=== PATIENT | male | born 1940 | race Caucasian/White ===

== ENCOUNTER 2020-09-24 10:49 | Inpatient (IN) | payer OTHER, MEDICARE ==
[~2020-09-24] VITALS: Ht 198.1 cm; Wt 87.5 kg
[~2020-09-24 10:49] MED LIST: ACET325 PO; ALLO300 PO; AMLO5 PO; ATOR20 PO; Amaryl2 MG PO; Aspirin EC81 MG PO; BASAGLAR K100 UNIT/1 SC; CEPH500 PO; COREG6.25 MG PO; Chlorthalidone25 MG; FLOMAX0.4 MG PO; Flomax0.4 MG PO; GLUCOPHAGE1000 MG PO; GLYMET5 PO; Glyburide5 MG PO; HUMALOG KW100 UNIT/1 SC; HYDCHL25 PO; HYDR10 PO; INSDET100 SC; LISI20 PO; Lantus100 UNIT/1 SC; Lisinopril2.5 MG PO; MAGNESIUM OXID500 MG PO; METO100ER PO; NAPR220 PO; NOVOLOG FL100 UNIT/3 SC; ONDA4ODT PO; POTA10T PO; POTCHL20ER PO; SIMV10 PO; SIMV40 PO; TRAM50 PO; VISBIOME 112.51 EACH PO; Vitamin D2000 UNIT PO; XARELTO20 MG PO
[2020-09-24 11:29] LABS: BASOPHILS ABSOLUTE AUTO 0.06 K/mm3 (0.00-0.23); BASOPHILS PERCENT AUTO 0 % (0-2); Hematocrit 28.1 % (37.0-53.0); Hemoglobin 9.2 g/dL (13.5-17.5); LYMPHOCYTES ABSOLUTE AUTO 1.22 K/mm3 (0.84-5.20); LYMPHOCYTES PERCENT AUTO 9 % (21-46); MONOCYTES ABSOLUTE AUTO 0.93 K/mm3 (0.16-1.47); MONOCYTES PERCENT AUTO 6 % (4-13); Mean Corpuscular HGB 27.8 pg (26.0-34.0); Mean Corpuscular HGB Conc 32.7 g/dL (31.5-36.5); Mean Corpuscular Volume 85 fL (80-100); Mean Platelet Volume 9.9 fL (9.1-12.4); Platelet Count 596 K/mm3 (150-400); RDW Coefficient Variation 15.1 % (11.7-14.2); RDW Standard Deviation 46.8 fL (35.1-46.3); Red Blood Cell Count 3.31 M/mm3 (4.30-5.90); White Blood Cell Count 14.43 K/mm3 (4.00-11.30)
[2020-09-24 11:34] LABS: EOSINOPHILS PERCENT AUTO 0 % (0-6); IMMATURE GRAN ABSOLUTE AUTO 0.19 K/mm3 (0.00-0.10); IMMATURE GRAN PERCENT AUTO 1 % (0-1); NEUTROPHILS ABSOLUTE AUTO 12.03 K/mm3 (1.96-9.15); NEUTROPHILS PERCENT AUTO 83 % (41-73)
[2020-09-24 11:43] LABS: Alanine Aminotransfer (ALT/SGP 30 U/L (12-78); Albumin, Blood 1.4 g/dL (3.4-5.0); Albumin/Globulin Ratio 0.3 (0.8-1.8); Alk Phos 91 U/L (50-136); Anion Gap 7 mmol/L (6-16); Aspartate Aminotrans (AST/SGOT 41 U/L (12-37); Bilirubin, Total 0.4 mg/dL (0.1-1.0); Blood Urea Nitrogen 47 mg/dL (8-24); Bun/Creatinine Ratio 55.4 (12.0-20.0); CO2, Blood 25 mmol/L (21-32); Calcium, Blood 7.8 mg/dL (8.5-10.1); Chloride, Blood 100 mmol/L (98-108); Creatinine, Blood 0.85 mg/dL (0.60-1.20); Globulin, Blood 4.6 g/dL (2.2-4.0); Glomerular Filtration Rate >60 (60-); Glucose, Blood 256 mg/dL (70-99); Potassium, Blood 4.9 mmol/L (3.5-5.5); Sodium, Blood 132 mmol/L (136-145)
[2020-09-24 15:43] LABS: Percent Saturation 8.2 % (20.0-50.0)
--- NOTE | 2020-09-24 18:12 | NUR ---
REPORT RECIEVED FROM JACQUE DUFF RN, @ 2054. PATIENT ARRIVED TO ROOM 349 @ 1606 AND WAS TRANSFERED TO HOSPITAL BED WITH THE ASSISTANCE OF THREE HOSPITAL STAFF. PATIENT VERY SLEEPY AND LETHARGIC. ADMISSION H&P AND ASSESSMENT COMPLETED WITH THE ASSISTANCE OF MEDICAL RECORDS; PATIENT IS MUCH TOO TIRED AND POOR HISTORIAN. ULCERS T/O; PICTURES TAKEN AND PLACED IN CHART; MEASURED. PATIENT IS PLEASANT AND COOPERATIVE WITH STAFF, JUST EXTREMELY PAINFUL. PATIENT ASLEEP IN BED AT THIS TIME. CALL LIGHT IN REACH.
[2020-09-24 22:42] LABS: Source, Urine Catheter
[2020-09-24 22:45] LABS: Appearance, Urine Clear (Clear); Bilirubin, Urine Neg (Neg); Blood, Urine Neg (Neg); Color, Urine Amber (P-Yellow); Glucose Qualitative, Urine Neg (Neg); Ketones, Urine Neg (Neg); Leukocyte Esterase, Urine 1+ (Neg); Nitrite, Urine Neg (Neg); Protein, Urine 2+ (Neg); Urobilinogen, Urine NORM (Normal)
[2020-09-24 22:52] LABS: Bacteria Mod /hpf; Granular Casts 0-2 /lpf (0); Red Blood Cells, Urine 0-2 /hpf (0-2); Squamous Epithelial Cells Few /hpf (Few); WBC Cast 0-2 /lpf (0)
--- NOTE | 2020-09-25 03:16 | NUR ---
0300 PT FOUND W/ SBP IN 80'S. DR FERRER CALLED AND A 500ML BOLUS ORDERED. WCTM.
--- NOTE | 2020-09-25 04:26 | NUR ---
SUMMARY PT HAS BEEN SLEEPING FOR MOST OF SHIFT. PT WAS GIVEN BLOUS OF FLUID TO KEEP SBP >90. PT IS A ASPIRATION RISK W/ VERY WEAK COUGH. PENA CATH PLACED TO PROTECT WOUND AND SKIN. PENA DRAINING WELL TO GRAVITY. PT CURRENTLY SLEEPING IN NO DISTRESS.
[2020-09-25 05:00] LABS: BASOPHILS ABSOLUTE AUTO 0.15 K/mm3 (0.00-0.23); BASOPHILS PERCENT AUTO 1 % (0-2); Hematocrit 27.8 % (37.0-53.0); Hemoglobin 9.1 g/dL (13.5-17.5); LYMPHOCYTES ABSOLUTE AUTO 1.24 K/mm3 (0.84-5.20); LYMPHOCYTES PERCENT AUTO 7 % (21-46); MONOCYTES ABSOLUTE AUTO 0.73 K/mm3 (0.16-1.47); MONOCYTES PERCENT AUTO 4 % (4-13); Mean Corpuscular HGB 27.3 pg (26.0-34.0); Mean Corpuscular HGB Conc 32.7 g/dL (31.5-36.5); Mean Corpuscular Volume 84 fL (80-100); Mean Platelet Volume 9.9 fL (9.1-12.4); Platelet Count 585 K/mm3 (150-400); RDW Coefficient Variation 15.3 % (11.7-14.2); RDW Standard Deviation 46.8 fL (35.1-46.3); Red Blood Cell Count 3.33 M/mm3 (4.30-5.90); White Blood Cell Count 17.97 K/mm3 (4.00-11.30)
[2020-09-25 05:02] LABS: EOSINOPHILS PERCENT AUTO 0 % (0-6); IMMATURE GRAN ABSOLUTE AUTO 0.34 K/mm3 (0.00-0.10); IMMATURE GRAN PERCENT AUTO 2 % (0-1); NEUTROPHILS ABSOLUTE AUTO 15.51 K/mm3 (1.96-9.15); NEUTROPHILS PERCENT AUTO 86 % (41-73)
[2020-09-25 05:24] LABS: Anion Gap 8 mmol/L (6-16); Blood Urea Nitrogen 54 mg/dL (8-24); Bun/Creatinine Ratio 54.4 (12.0-20.0); CO2, Blood 23 mmol/L (21-32); Calcium, Blood 7.3 mg/dL (8.5-10.1); Chloride, Blood 106 mmol/L (98-108); Creatinine, Blood 0.99 mg/dL (0.60-1.20); Glomerular Filtration Rate >60 (60-); Glucose, Blood 187 mg/dL (70-99); Potassium, Blood 4.8 mmol/L (3.5-5.5); Sodium, Blood 137 mmol/L (136-145)
--- NOTE | 2020-09-25 15:05 | NUR ---
PATIENT CONTINUES TO BE LETHARGIC TODAY. BP REMAINS LOW; SBP 92 THIS AFTERNOON. PATIENT CONTINUES TO RECIEVE IV FLUIDS AND IV ABX WITHOUT S/SX ADVERSE REACTIONS NOTED OR REPORTED. PATIENT PRE-MEDICATED ABLE PRIOR TO REPOSITIONING HIM DUE TO BEING EXTREMELY PAINFUL, EXPECIALLY TO HIS COCCYX, WHICH IS NECROTIC. DRESSING TO COCCYX CHANGED DURING LAST REPOSITIONING DUE TO BLEED-THROUGH OF FOAM PRESENT. PATIENT IS MAX ASSIST WITH REPOSITIONING AND REMAINS BEDBOUND. HE IS HIT AND MISS WITH HIS LEVEL OF ORIENTATION AND ABILITY TO COMMUNICATE WITH STAFF. PATIENT BACK TO SLEEP AT THIS TIME. CALL LIGHT IN REACH.
[2020-09-26 05:15] LABS: BASOPHILS ABSOLUTE AUTO 0.12 K/mm3 (0.00-0.23); BASOPHILS PERCENT AUTO 1 % (0-2); EOSINOPHILS ABSOLUTE AUTO 0.04 K/mm3 (0.00-0.68); EOSINOPHILS PERCENT AUTO 0 % (0-6); Hematocrit 28.6 % (37.0-53.0); Hemoglobin 9.1 g/dL (13.5-17.5); IMMATURE GRAN ABSOLUTE AUTO 0.46 K/mm3 (0.00-0.10); IMMATURE GRAN PERCENT AUTO 3 % (0-1); LYMPHOCYTES ABSOLUTE AUTO 1.25 K/mm3 (0.84-5.20); LYMPHOCYTES PERCENT AUTO 7 % (21-46); MONOCYTES ABSOLUTE AUTO 0.58 K/mm3 (0.16-1.47); MONOCYTES PERCENT AUTO 3 % (4-13); Mean Corpuscular HGB 27.2 pg (26.0-34.0); Mean Corpuscular HGB Conc 31.8 g/dL (31.5-36.5); Mean Corpuscular Volume 85 fL (80-100); Mean Platelet Volume 9.9 fL (9.1-12.4); NEUTROPHILS ABSOLUTE AUTO 16.17 K/mm3 (1.96-9.15); NEUTROPHILS PERCENT AUTO 87 % (41-73); Platelet Count 587 K/mm3 (150-400); RDW Coefficient Variation 15.7 % (11.7-14.2); RDW Standard Deviation 48.3 fL (35.1-46.3); Red Blood Cell Count 3.35 M/mm3 (4.30-5.90); White Blood Cell Count 18.62 K/mm3 (4.00-11.30)
[2020-09-26 05:38] LABS: BAND PERCENT MAN 11 % (0-8); BASOPHILS PERCENT MAN 0 % (0-2); EOSINOPHILS PERCENT MAN 0 % (0-6); LYMPHOCYTES ABSOLUTE MAN 0.55 K/mm3 (0.84-5.20); LYMPHOCYTES PERCENT MAN 3 % (21-46); METAMYELOCYTE ABSOLUTE MAN 0.18 K/mm3 (0.00-0.00); METAMYELOCYTE PERCENT MAN 1 % (0-0); MONOCYTES ABSOLUTE MAN 0.18 K/mm3 (0.16-1.47); MONOCYTES PERCENT MAN 1 % (4-13); NEUTROPHILS ABSOLUTE MAN 17.68 K/mm3 (1.96-9.15); SEG NEUTROPHILS PERCENT MAN 84 % (41-73); TOTAL CELLS COUNTED 100
[2020-09-26 05:40] LABS: Anion Gap 5 mmol/L (6-16); Blood Urea Nitrogen 51 mg/dL (8-24); Bun/Creatinine Ratio 56.2 (12.0-20.0); CO2, Blood 24 mmol/L (21-32); Calcium, Blood 7.5 mg/dL (8.5-10.1); Chloride, Blood 112 mmol/L (98-108); Creatinine, Blood 0.91 mg/dL (0.60-1.20); Glomerular Filtration Rate >60 (60-); Glucose, Blood 154 mg/dL (70-99); Potassium, Blood 4.1 mmol/L (3.5-5.5); Sodium, Blood 141 mmol/L (136-145)
--- NOTE | 2020-09-26 06:20 | NUR ---
SUMMARY PT MORE ALERT THIS SHIFT. PT HAS SLEPT WELL AND COMFORTABLY. PT PAIN TX PER EMAR. PT CURRENTLY SLEEPING IN NO DISTRESS. CALL LIGHT IN REACH AND BED ALARM ON.
--- NOTE | 2020-09-26 17:09 | NUR ---
PATIENT A/O TO SELF AND FAMILY. MULTIPLE WOUNDS TO BLE AND LARGE COCCYX WOUND WITH ABSCESS. CT GUIDED DRAINAGE OF ABSCESS TODAY AND PLAN FOR I&D TOMORROW. HOLD LOVENOX THIS EVENING. DILAUDID GIVEN TO TREAT PAIN, VERY PAINFUL WITH REPOSITIONING. ST SAW PATIENT TODAY AND PLACED ORDERS FOR STRICT NPO AND Q2 HOUR ORAL CARE. HUMIDIFIED AIR VIA MASK TO HELP MOISTEN MOUTH AND THROAT. TURNING Q2 HOURS.
[2020-09-27 05:33] LABS: Hematocrit 28.5 % (37.0-53.0); Hemoglobin 9.2 g/dL (13.5-17.5); Mean Corpuscular HGB 27.4 pg (26.0-34.0); Mean Corpuscular HGB Conc 32.3 g/dL (31.5-36.5); Mean Corpuscular Volume 85 fL (80-100); Mean Platelet Volume 9.6 fL (9.1-12.4); Platelet Count 598 K/mm3 (150-400); RDW Coefficient Variation 15.8 % (11.7-14.2); RDW Standard Deviation 48.7 fL (35.1-46.3); Red Blood Cell Count 3.36 M/mm3 (4.30-5.90); White Blood Cell Count 22.42 K/mm3 (4.00-11.30)
[2020-09-27 05:52] LABS: SARS-Cov-2 (COVID-19) PCR, MMC NEGATIVE (NEGATIVE)
--- NOTE | 2020-09-27 05:59 | NUR ---
SHIFT SUMMARY NO ACUTE CHANGES THIS SHIFT, PLEASANT & COOPERATIVE W/CARE, A&O X3, MEDICATED PER MAR FOR PAIN, REPOS Q2 T/O SHIFT, SLEEPING AT THIS TIME, CALL LIGHT IN REACH, BED ALARM ACTIVE, WILL CONT TO MONITOR UNTIL REPORT GIVEN TO DAY RN.
[2020-09-27 06:07] LABS: Anion Gap 7 mmol/L (6-16); Blood Urea Nitrogen 45 mg/dL (8-24); Bun/Creatinine Ratio 55.7 (12.0-20.0); CO2, Blood 21 mmol/L (21-32); Calcium, Blood 7.3 mg/dL (8.5-10.1); Chloride, Blood 116 mmol/L (98-108); Creatinine, Blood 0.81 mg/dL (0.60-1.20); Glomerular Filtration Rate >60 (60-); Glucose, Blood 183 mg/dL (70-99); Sodium, Blood 144 mmol/L (136-145); Vancomycin, Trough 18.9 ug/mL (5.0-10.0)
[2020-09-27 06:51] LABS: BAND PERCENT MAN 4 % (0-8); BASOPHILS PERCENT MAN 0 % (0-2); EOSINOPHILS PERCENT MAN 0 % (0-6); LYMPHOCYTES ABSOLUTE MAN 1.34 K/mm3 (0.84-5.20); LYMPHOCYTES PERCENT MAN 6 % (21-46); METAMYELOCYTE ABSOLUTE MAN 0.22 K/mm3 (0.00-0.00); METAMYELOCYTE PERCENT MAN 1 % (0-0); MONOCYTES ABSOLUTE MAN 0.22 K/mm3 (0.16-1.47); MONOCYTES PERCENT MAN 1 % (4-13); MYELOCYTE ABSOLUTE MAN 0.44 K/mm3 (0.00-0.00); MYELOCYTE PERCENT MAN 2 % (0-0); NEUTROPHILS ABSOLUTE MAN 20.17 K/mm3 (1.96-9.15); SEG NEUTROPHILS PERCENT MAN 86 % (41-73); TOTAL CELLS COUNTED 100
--- NOTE | 2020-09-27 13:17 | NUR ---
Case Conference Note Spoke with Dr Madera and discussed case. Family would benefit from discussion regarding advanced care planning and completing a POLST. Attempted to see Pt but is currently in procedure. Called and spoke with Pt's daughter Vanessa. Engaged in therapeutic discussion regarding advanced care planning. Gentle education on his multiple comorbidities including progression of disease process. Discussed the importance of planning for the future and developing multiple plans as disease process takes its coarse. Discussed considering completing a POLST with Vanessa in agreement. She states plan to visit this afternoon and is opened to completing a POLST when she arrives. Vanessa expresses appreciation and reports no concerns at this time. Spoke with Bedside RN Bandar and discussed case. Bandar will call this RN when daughter arrives. Palliative Care will remain available.
--- NOTE | 2020-09-27 13:28 | NUR ---
09/27/20 1328 Charis Gallardo PT ON SCHEDULED ANTIBIOTICS
--- NOTE | 2020-09-27 14:58 | NUR ---
PT TO OR 1115- ADMIN DILAUDID 0.5 JUST BEFORE LEAVING TO OR. GAVE RN BEDSIDE REPORT INCLUDING NPO STATUS, THAT HE'D HAD NO CARVEDILOL SINCE ADMIT. BECKY PRESENT. 2 #20 IV'S LAC AND RF. SL IV'S. PT ALERT AND ORIENTED TO GEN PLACE, FOLLOWS DIRECTIONS. VERBAL WITH ONE TWO WORD PHRASES, GAURDED BUT COOPERATIVE.
--- NOTE | 2020-09-27 15:01 | NUR ---
PT RETURNED FROM OR- REPORT FROM JENNY SPANN. PT SLEPY BUT AROUSES EASILY TO VERBAL. FOLLOWS COMMAND. LACTATION NURSE STRONG AND EQUAL. PEARLA. STATES PAIN 10/10, MEDICATED WITH DILAUDID AND STARTED NS AT 125. PLAN TO START PICC AND START CLINIMIX. O2 AT 3L. SATS 94%. ENC COUGH AND DEEP BREATH. SET UP SUCTION FOR ORAL CARE. VSS, WILL CHERYL POST OP VITALS.
--- NOTE | 2020-09-27 17:56 | NUR ---
Spoke with Bedside RN Bandar prior to Pt visit and discussed case. Pt back from procedure and is a little graugy. Pt medicated for pain. Pt resting in bed with his eyes closed upon arrival. Daughter Vanessa at bedside. Provided update and reviewed plan of care. Discussed POLST form and assisted Vanessa in completing POLST. Pt's wishes are DNR and Limited Treatment. Re-enforced education on the importance of planning for the future as Pt's medical issues progress. Encouraged routine conversations with Pt's PCP. Pt remains with his eyes closed throughout visit. Pt appears comfortable with no S/S of distress at this time. Vanessa expresses appreciation and reports no other concerns at this time. Placed POLST on Pt's whiteboard for hospitalist to sign during rounds. Palliative Care will remain available.
--- NOTE | 2020-09-27 19:37 | NUR ---
SUMMARY- PT HAD WOUND VAC PLACED TODAY DR DR BLACKMON. RETURNED POST OP 1425 SLEEPY BUT AROUSES EASILY TO VERBAL. MEDICATED WITH DILAUDID X2. CONT PULSE OX. OXYGEN 3L PLACED AFTER SURGERY OTHERWISE ON ROOM AIR. PT ENC TO DEEP BREATH DURING WAKING MOMENTS. PICC PLACED AND CXR OK FOR USE. STARTED CLINIMIX WITH LIPIDS. PT DEPENDANT IN CARE TURNED Q2. WOUND VAC PATENT AND SS DRAINAGE IN TUBING AND CANISTER. REPORTED TO JENS NAJERA.
[2020-09-28 04:09] LABS: Hematocrit 25.5 % (37.0-53.0); Hemoglobin 7.9 g/dL (13.5-17.5); Mean Corpuscular HGB 27.1 pg (26.0-34.0); Mean Corpuscular Volume 87 fL (80-100); Mean Platelet Volume 9.7 fL (9.1-12.4); NRBC ABSOLUTE 0.02 K/mm3 (0.00-0.02); NRBC Auto 0.1 /100 WBC (0.0-0.2); Platelet Count 617 K/mm3 (150-400); RDW Standard Deviation 51.6 fL (35.1-46.3); Red Blood Cell Count 2.92 M/mm3 (4.30-5.90); White Blood Cell Count 24.26 K/mm3 (4.00-11.30)
--- NOTE | 2020-09-28 04:12 | NUR ---
WOUND VAC DRESSING CHANGE WOUND VAC HAS BEEN DRAINING T/O MOST OF THE SHIFT. MODERATE AMOUNT OF RED DRAINAGE IN CANISTER, AMOUNT WAS NOTED DURING SHIFT CHANGE. AT 0256 IT WAS NOTED THAT DRAINAGE BEGIN TO INCREASE IN CANISTER. UPON ASSESSMENT OF WOUND VAC, WOUND VAC SEAL HAD BROKEN AND BLOOD WAS LEAKING AROUND THE DRESSING. THERE WAS A LARGE CLOT UNDERNEATH DRESSING. SRI MCKINNEY VEGETABLE INSPECTOR CALLED INTO ROOM TO ASSESS WOUND VAC, AND SURGICAL VEGETABLE INSPECTOR DM NAIR CALLED TO ASSESS WOUND VAC. HE NOTED THAT THERE WAS NOT VERY MUCH BLEEDING OR OUTPUT IN WOUND VAC CANNISTER AND STATES THAT IS TO BE EXPECTED AFTER SURGERY. NABIL CALLED AND NOTIFIED OF THE AMOUNT OF OUTPUT COMING FROM WOUND VAC POST SURGERY. HE STATES TO APPLY PRESSURE BUT AND TO LEAVE WOUND VAC IN PLACE. SRI VEGETABLE INSPECTOR CHANGED WOUND VAC DRESSING AND THROUGHLY CLEANED THE AREA. LABS DRAWN ON PT TO ASSESS H&H. NO H&H DRAWN SINCE BEFORE I&D YESTERDAY. H&H ABOVE 7.5. PT MEDICATED FOR PAIN PRIOR TO WOUND VAC CHANGE. WOUND VAC IN PLACE DRAINING AT 120 PER ORDERS. CANNISTER MARKED AFTER DRESSING CHANGE. MONITORING OUTPUT. POST OP VITALS ARE STABLE.
[2020-09-28 04:24] LABS: Anion Gap 6 mmol/L (6-16); Blood Urea Nitrogen 54 mg/dL (8-24); Bun/Creatinine Ratio 58.7 (12.0-20.0); CO2, Blood 24 mmol/L (21-32); Calcium, Blood 7.2 mg/dL (8.5-10.1); Chloride, Blood 116 mmol/L (98-108); Creatinine, Blood 0.92 mg/dL (0.60-1.20); Glomerular Filtration Rate >60 (60-); Glucose, Blood 325 mg/dL (70-99); Potassium, Blood 4.7 mmol/L (3.5-5.5); Sodium, Blood 146 mmol/L (136-145)
[2020-09-28 04:31] LABS: BAND PERCENT MAN 7 % (0-8); BASOPHILS PERCENT MAN 0 % (0-2); EOSINOPHILS PERCENT MAN 0 % (0-6); LYMPHOCYTES ABSOLUTE MAN 0.48 K/mm3 (0.84-5.20); LYMPHOCYTES PERCENT MAN 2 % (21-46); MONOCYTES ABSOLUTE MAN 0.48 K/mm3 (0.16-1.47); MONOCYTES PERCENT MAN 2 % (4-13); MYELOCYTE ABSOLUTE MAN 0.24 K/mm3 (0.00-0.00); MYELOCYTE PERCENT MAN 1 % (0-0); NEUTROPHILS ABSOLUTE MAN 23.04 K/mm3 (1.96-9.15); SEG NEUTROPHILS PERCENT MAN 88 % (41-73); TOTAL CELLS COUNTED 100
--- NOTE | 2020-09-28 06:02 | NUR ---
SHIFT SUMMARY PT HAS RESTED MOST OF THE NIGHT. DROWSY, BUT EASILY AROUSES TO VERBAL STIMULI. PT POST I&D OF COCCYX WOUND YESTERDAY BY DR. BLACKMON. WOUND VAC PLACED BY DR. BLACKMON AFTER PROCEDURE. WOUND VAC DRAINED FOR MOST OF THE NIGHT, BUT CLOSE TO 0300 WOUND VAC SEAL BROKE. THERE WAS A LARGE CLOT IN THE WOUND BED THAT POSSIBLY BROKE WOUND VAC SEAL, CAUSING IT TO LEAK. THERE WAS NO ALARM FROM WOUND VAC THAT SEAL HAD BROKEN, AND WOUND VAC CONTINUED TO DRAIN. DR. FERRER CALLED AND NOTIFED OF THE AMOUNT OF DRAINAGE IN WOUND VAC CANNISTER. HE TOLD US TO APPLY PRESSURE AND TO LEAVE WOUND VAC. SEE PRIOR NURSES NOTES. WOUND VAC DRESSING CHANGED. WOUND VAC IS SEALED AND IS DRAINING AT THIS TIME. H&H STABLE AT THIS TIME. PT RECEIVING PPN, AND IV ANTIBIOTICS CONTINUED ORDERED. POST OP VITALS ARE STABLE. PT A/OX TO SELF. 1L O2 IN PLACE, SATS WNL. NO OTHER CHANGES TO REPORT. BED IN LOWEST POSITION, CALL LIGHT WITHIN REACH.
[2020-09-28 06:26] LABS: Vancomycin, Trough 17.6 ug/mL (5.0-10.0)
--- NOTE | 2020-09-28 17:33 | NUR ---
SHIFT SUMMARY PT IS NOT AO. PT MEDICATED FOR PAIN X1 THEN SLEPT PEACEFULLY. PT DENIES N/V, SOB. PT WORKED WITH PT/OT AND WAS TOO PAINFUL TO DO MUCH. PT REMAINS NPO WITH ORAL CARE PERFORMED THIS SHIFT. PT NOW HAS CPN RUNNING IN THE PICC LINE. PT DID NOT HAVE ANY VISITORS TODAY. PT DID NOT HAVE PROCEDURES TODAY. PT IS IN BED, CALL LIGHT IN REACH, BED IN LOW POSITION.
[2020-09-29 05:13] LABS: Hematocrit 22.5 % (37.0-53.0); Mean Corpuscular HGB 27.2 pg (26.0-34.0); Mean Corpuscular HGB Conc 31.1 g/dL (31.5-36.5); Mean Corpuscular Volume 88 fL (80-100); Mean Platelet Volume 9.7 fL (9.1-12.4); NRBC ABSOLUTE 0.03 K/mm3 (0.00-0.02); NRBC Auto 0.2 /100 WBC (0.0-0.2); Platelet Count 428 K/mm3 (150-400); RDW Coefficient Variation 16.1 % (11.7-14.2); RDW Standard Deviation 51.1 fL (35.1-46.3); Red Blood Cell Count 2.57 M/mm3 (4.30-5.90)
--- NOTE | 2020-09-29 05:28 | NUR ---
SHIFT SUMMARY PATIENT ALERT AND ORIENTED TO SELF. MEDICATED PER EMAR FOR PAIN. NO ACUTE ISSUES NOTED OVERNIGHT. PENA PATENT AND DRAINING TO GRAVITY. DARK RED FLUID DRAINING FROM HIS WOUND VAC. PICC LINE PATENT AND INFUSING. BED IN LOWEST POSITION WITH WHEELS LOCKED AND ALARM ON. CALL LIGHT WITHIN REACH. REPORT GIVEN TO ONCOMING RN.
[2020-09-29 05:34] LABS: Anion Gap 2 mmol/L (6-16); Blood Urea Nitrogen 56 mg/dL (8-24); Bun/Creatinine Ratio 74.3 (12.0-20.0); CO2, Blood 27 mmol/L (21-32); Calcium, Blood 7.5 mg/dL (8.5-10.1); Chloride, Blood 119 mmol/L (98-108); Creatinine, Blood 0.75 mg/dL (0.60-1.20); Glomerular Filtration Rate >60 (60-); Glucose, Blood 262 mg/dL (70-99); Magnesium, Blood 2.8 mg/dL (1.6-2.4); Phosphorus, Blood 3.1 mg/dL (2.5-4.9); Potassium, Blood 4.6 mmol/L (3.5-5.5); Sodium, Blood 148 mmol/L (136-145); Triglycerides 121 mg/dL (30-160)
[2020-09-29 05:54] LABS: BAND PERCENT MAN 6 % (0-8); BASOPHILS PERCENT MAN 0 % (0-2); EOSINOPHILS PERCENT MAN 0 % (0-6); LYMPHOCYTES ABSOLUTE MAN 0.94 K/mm3 (0.84-5.20); LYMPHOCYTES PERCENT MAN 6 % (21-46); MONOCYTES ABSOLUTE MAN 0.15 K/mm3 (0.16-1.47); MONOCYTES PERCENT MAN 1 % (4-13); SEG NEUTROPHILS PERCENT MAN 87 % (41-73); TOTAL CELLS COUNTED 100
[2020-09-29 13:49] LABS: Free Thyroxine 0.7 ng/dL (0.70-1.60); Thyroid Stimulating Hormone 4.37 uIU/mL (0.360-4.800)
--- NOTE | 2020-09-29 15:36 | NUR ---
2nd referral recieved. Pt failed swallow evaluation and discussion regarding potential need for PEG tube vs no PEG tube with daughter may be beneficial. Pt resting in bed upon arrival. Pt is confused and appears moderately anxious and mildly painful. Pt pulls his O2 sensor off his finger. Bedside RN Belkys in to reattach. Engaged in therapeutic discussion regarding goals of care with jeimy Mendez. Discuss ST evaluation and Pt needing to remain NPO. Discussed potential need for intermediate feeding with PEG tube placement. Vanessa states Pt would not want a feeding tube placed. Discussed comfort care and hospice as an option. Educated on comfort care philosophy with V/U made by Vanessa. Vanessa reports leaning towards comfort care and will discuss further with Dr David when he arrives. Offered therapeutic listening and answered questions. Vanessa reports noticing a significant decline in Pt and states "I suspected this to happen". Continued therapeutic listening. Vanessa expresses appreciation of visit and reports no other concerns at this time. Spoke with Bedside DANIA Rizvi and discussed case. Called and spoke with Dr David. Relayed conversation that took place with daughter. Dr David reports plan to come to Pt's room shortly. Palliative Care will remain available.
--- NOTE | 2020-09-29 16:59 | NUR ---
SHIFT SUMMARY PT IS AO TO SELF AND FAMILY. PT MEDICATED FOR PAIN X2 THIS SHIFT. PT DENIES N/V, SOB. PT TRANSFERRED TO CHAIR FOR ONE HOUR THIS SHIFT USING A LIFT. PT WOUND VAC CANISTER CHANGED THIS SHIFT. PT TRANSITIONED TO COMFORT CARE THIS SHIFT. DAUGHTER IN THIS ROSA AND SPOKE WITH PALLIATIVE CARE AND PHYSICIAN. ORAL CARE PROVIDED X2 BY THIS RN, X2 BY ST. PT REMAINS NPO PER ST EVLANG THIS AM. PT REMAINS RELAXED AND IN BED, CALL LIGHT IN REACH, LOW POSITION.
--- NOTE | 2020-09-30 01:10 | NUR ---
PENA CATHETER WAS LEAKING. CATHETER REMOVED AND REPLACED.
--- NOTE | 2020-09-30 06:27 | NUR ---
SHIFT SUMMARY PATIENT ALERT AND ORIENTED TO SELF. WAS MEDICATED PER EMAR FOR PAIN OFTEN POSSIBLE UNTIL ABOUT 0100 WHEN IT WAS NOTED THAT HIS CATHETER WAS LEAKING AND NO LONGER PATENT. A NEW 18 HUNGARIAN CATHETER WAS PLACED. AFTERWARDS THE PATIENT APPEARED MUCH MORE COMFORTABLE AND WAS ABLE TO SLEEP THE REST OF THE NIGHT. PICC LINE PATENT AND FLUSHED. BED IN LOWEST POSITION WITH WHEELS LOCKED AND ALARM ON. CALL LIGHT WITHIN REACH. REPORT GIVEN TO ONCOMING RN.
--- NOTE | 2020-09-30 15:00 | NUR ---
Pal Care comfort care visit made - pt did not wake to voice or touch, loud, snorous exhales with sl pausing between even, sl labored respirations noted. Pt did not demonstrate nonverbal indicators of pain or anxiety at this time. No visitors in room when I rounded. Reviewed EMR and eMAR and spoke to RN covering for primary RN. Pal Care to visit daily.
--- NOTE | 2020-09-30 20:27 | NUR ---
COMFORT CARE. PT IS SLEEPING IN BED. EYES CLOSED, NOT RESPONDING TO VERBAL STIMULI OR TOUCH. RESPS REG, NON-LABORED, WET SOUNDING. ORAL SUCTION PERFORMED. ORAL CARE COMPLETED. ATROPINE AND ROXANOL GIVEN. WOUND VAC SUCTIONING AT 120MMHG. F/C PATENT AND DRAINING YELLOW URINE.
--- NOTE | 2020-09-30 23:33 | NUR ---
PT NOTED TO BE WITHOUT RESPIRATIONS AND HEART RATE AT 2300. CALL PLACED TO PT DAUGHTER, RENETTA. MESSAGE LEFT ON PHONE REQUESTING RETURN CALL. HOSPITALIST, SONY SCHAFFER NOTIFIED.
== END 2020-09-30 23:00 | DRG 853 ==
LOC: ER 10:49 → ERHOLD 14:01 → MEDS 14:01
PROVIDERS: Emergency Medicine; Internal Medicine; Surgery; ADMIT Internal Medicine
PROC: 02HV33Z Insertion of Infusion Device into Superior Vena Cava, Percutaneous Approach (ICD-10-PCS; 2020-09-27)
PROC: 3E0436Z Introduction of Nutritional Substance into Central Vein, Percutaneous Approach (ICD-10-PCS; 2020-09-27)
PROC: 0JB70ZZ Excision of Back Subcutaneous Tissue and Fascia, Open Approach (ICD-10-PCS; principal; 2020-09-27 12:15)
DX: A41.59 Other Gram-negative sepsis (principal); J69.0 Pneumonitis due to inhalation of food and vomit; E43 Unspecified severe protein-calorie malnutrition; G93.41 Metabolic encephalopathy; M62.82 Rhabdomyolysis; L03.312 Cellulitis of back [any part except buttock and flank]; Z51.5 Encounter for palliative care; Z66 Do not resuscitate; L02.212 Cutaneous abscess of back [any part, except buttock and flank]; E87.2 Acidosis; E87.0 Hyperosmolality and hypernatremia; Z20.822 Contact with and (suspected) exposure to COVID-19; B96.4 Proteus (mirabilis) (morganii) as the cause of diseases classified elsewhere; L89.102 Pressure ulcer of unspecified part of back, stage 2; R62.7 Adult failure to thrive; R65.20 Severe sepsis without septic shock; Z68.23 Body mass index [BMI] 23.0-23.9, adult; R13.12 Dysphagia, oropharyngeal phase; M60.88 Other myositis, other site; I48.0 Paroxysmal atrial fibrillation; E11.9 Type 2 diabetes mellitus without complications; D53.9 Nutritional anemia, unspecified; L89.602 Pressure ulcer of unspecified heel, stage 2; I11.9 Hypertensive heart disease without heart failure; E78.5 Hyperlipidemia, unspecified; I25.5 Ischemic cardiomyopathy; N40.0 Benign prostatic hyperplasia without lower urinary tract symptoms; I25.10 Atherosclerotic heart disease of native coronary artery without angina pectoris; Z95.5 Presence of coronary angioplasty implant and graft; Z98.890 Other specified postprocedural states; Z79.82 Long term (current) use of aspirin; Z79.4 Long term (current) use of insulin; Z79.899 Other long term (current) drug therapy; Z87.891 Personal history of nicotine dependence; Z88.8 Allergy status to other drugs, medicaments and biological substances
CPT/HCPCS: 10030; 36415; 36569; 51702; 71045; 72193; 74176; 80048; 80053; 80202; 81001; 82607; 82728; 82746; 82947; 83540; 83550; 83605; 83735; 84100; 84439; 84443; 84478; 85025; 86140; 87040; 87070; 87075; 87086; 87205; 92526; 92610; 93005; 93010; 96365-59; 96366; 96367-59; 96375-59; 97110; 97161; 97165; 97530; 99285-25; A9270; C1751; J1100; J1170; J1650; J2405; J2543; J2704; J3010; J3370; J3411; J7030; J7040; J7050; J7120; Q9967; U0004